=== PATIENT | male | born 1980 | race Caucasian/White ===

== ENCOUNTER 2023-09-07 01:34 | Emergency (ER) | payer OTHER, SELFPAY ==
[2023-09-07 01:31] VITALS: BP 133/86; PULSE 88; RESP 22; TEMP 36.5; O2SAT 96
[2023-09-07 01:37] VITALS: O2SAT 97
--- NOTE | 2023-09-07 01:49 | ECG_ITS ---
Test Date: 2023-09-07 01:34:18 Measurements Intervals [place] Rate: 89 P: 57 VA: 176 QRS: 38 QRSD: 91 T: 31 QT: 353 QTc: 432 Interpretive Statements SINUS RHYTHM WITHIN NORMAL LIMITS No previous ECG available for comparison Electronically Signed On 09-07-2023 07:16:34 CDT by Nicola Alcantara M.D.
[2023-09-07] MEDS: FAMOTIDINE 20 MG/2 ML VIAL IV PUSH (01:56)
[2023-09-07 02:16] VITALS: BP 143/73; PULSE 104; RESP 16; O2SAT 93
[2023-09-07 02:30] VITALS: BP 133/77; PULSE 104; RESP 18; O2SAT 95
[2023-09-07 03:15] VITALS: BP 139/79; PULSE 95; RESP 17; O2SAT 93
--- NOTE | 2023-09-07 03:35 | ED.ALLEREA ---
HPI - Allergic Reaction General Chief complaint: Allergic Reaction Stated complaint: ALLERGIC REACTION TO EGGS Time Seen by Provider: 09/07/23 03:22 History of Present Illness HPI narrative: Patient is a 43-year-old male who presents to the emergency department this evening due to an allergic reaction. Patient has a known new allergy to eggs and accidentally ate some baked goods which he did not know had eggs in them. Patient's administered to epi pens 10 minutes apart prior to patient arriving to our emergency department. Upon arrival, patient states that he is taking a total of 50 mg of oral Benadryl and 10 mg of oral Decadron administered by EMS. Patient states that he feels significantly better. He is currently denying any difficulty breathing, chest pain, any throat swelling and has currently no complaints or concerns. Related Data Allergies Allergy/AdvReac Type Severity Reaction Status Date / Time iodine Allergy Severe Anaphylaxis Verified 09/07/23 01:39 Penicillins Allergy Unknown Anaphylaxis Verified 09/07/23 01:39 egg Allergy Anaphylaxis Verified 09/07/23 01:39 Contrast Media Allergy Severe Anaphylactic Uncoded 07/11/14 09:51 Shock Review of Systems Review of Systems: All systems are reviewed and are negative unless stated otherwise in the HPI. [facility] Family History Family History Other Family history of congestive heart failure Social History Social History Alcohol intake: current Exam Narrative: General: Alert, awake, afebrile, in no acute distress. HEENT: PERRL, no rhinorrhea, no post nasal drip, oropharynx clear. Cardiovascular: Regular rate and rhythm, no murmurs, rubs or gallops, no peripheral edema. Respiratory: Clear to auscultation bilaterally, no tachypnea, no wheezing, no rhonchi, no rubs, no respiratory distress. Abdomen: Soft, nontender, nondistended, no rebound, no guarding, no peritoneal signs. Musculoskeletal: No joint swelling or deformity, normal muscle tone. Skin: No rashes or petechia, no signs of infection. Neurological: Alert and oriented to person, place, and time. Follows all commands. No focal deficits, speech is clear and fluent. Course Vital Signs Vital signs: Vital Signs Temperature 97.7 F 09/07/23 01:31 Pulse Rate 88 09/07/23 01:31 Respiratory Rate 22 H 09/07/23 01:31 Blood Pressure 133/86 09/07/23 01:31 Pulse Oximetry 96 09/07/23 01:31 Oxygen Delivery Room Air 09/07/23 01:31 Temperature 97.7 F 09/07/23 01:31 Pulse Rate 104 H 09/07/23 02:16 Respiratory Rate 16 09/07/23 02:16 Blood Pressure 143/73 H 09/07/23 02:16 Pulse Oximetry 93 09/07/23 02:16 Oxygen Delivery Room Air 09/07/23 01:37 MDM - Allergic Reaction MDM Narrative Medical decision making narrative: The patient was evaluated by myself in the emergency department. History is obtained from patient who is an independent historian and physical exam was performed. External medical records were reviewed at this time. IV was established and pertinent tests were ordered. Patient was administered 20 mg of IV Pepcid. No steroids or Benadryl were administered since patient had full doses prior to arrival to the emergency department. EKG was obtained which revealed sinus rhythm rate of 89 beats per minute. No ST changes, T wave inversions or evidence of acute ischemia. EKG was independently interpreted by me and is currently pending official cardiology read. Differential diagnosis considerations include allergic reaction versus anaphylaxis. Comorbidities impacting this visit include history of allergy to eggs, penicillins and iodine all leading to anaphylactic shock. I have evaluated and discussed social determinants of health with the patient that could potentially impact subsequent diagnosis and treatment plans. On repeat assessment of the p
[2023-09-07 03:45] VITALS: BP 132/78; PULSE 93; RESP 18; O2SAT 92
== END 2023-09-07 04:07 | disposition home or self-care (01) ==
LOC: ANHED 03:41
PROVIDERS: Emergency Provider Emergency Medicine; PCP Physician Assistant
DX: T78.1XXA Other adverse food reactions, not elsewhere classified, initial encounter (principal); R07.89 Other chest pain; R11.0 Nausea; R06.89 Other abnormalities of breathing; Z91.012 Allergy to eggs
CPT/HCPCS: 93005; 96374; 99284